=== PATIENT | male | born 1930 | race Caucasian/White ===

== ENCOUNTER 2020-05-23 09:48 | Emergency (ER) | payer OTHER ==
--- NOTE | 2020-05-23 09:53 | PDOC ---
Attending Attestation - Resident Resident Name: Pablo Key - ED Attending Attestation I have performed the following: I have examined & evaluated the patient, The case was reviewed & discussed with the resident, I agree w/resident's findings & plan, Exceptions are as noted - HPI HPI: 05/23/20 09:55 89y M htn, hl, hypothryoidism, dementia presents with complaint of urinary frequency for approx 2 weeks, was seen by PMD and dx with a UTI, started on cirpo that the pt completed and was started on keflex for the past 4 days as the pt was still symptomatic. No reported fever/chills, dysuria, foul smellin gurine, abd pain, cp, n/v, sob, back pain, changes in oral intake. No known hx of BPH. PMD: Dr. Petty - Physicial Exam PE: 05/23/20 11:16 GENERAL: The patient is awake, alert, and fully oriented, Nontoxic - in no acute distress. HEAD: Normocephalic, atraumatic. LUNGS: Breath sounds equal, clear to auscultation bilaterally. No wheezes, no rhonchi, no rales. HEART: Regular rate and rhythm, normal S1 and S2 without murmur, rub or gallop. ABDOMEN: Soft, fullness and mild tenderness on suprapbic region, No guarding, no rebound. No CVA tenderness SKIN: Warm, Dry, normal turgor, - Medical Decision Making 05/23/20 11:17 suspect urinary retention - possible due to UTI will ck labs, ua, ucx fontenot placed with approx 750cc of urine thus far will have pt continue / complet abx if labs unremarkable anticipate Urology fu 05/23/20 12:12 pts labs reviewed unremarkble pt feeling better will dc with outaptient fu with fontenot and leg bag return precautions were discussed Discharge - Discharge Information Problems reviewed: Yes Clinical Impression/Diagnosis: Urinary retention Condition: Stable Disposition: HOME - Admission No - Follow up/Referral Referrals: Charly Lopez MD [Staff Physician] - Juan F Bradford MD [Staff Physician] - Donovan San MD [Staff Physician] - Jeff Reid MD [Staff Physician] - Con Landeros MD [Primary Care Provider] - - Patient Discharge Instructions Patient Printed Discharge Instructions: How to Care for Your Fontenot Catheter -- Male, DI for Urinary Retention in Men Additional Instructions: You were seen in the Emergency Department for evaluation of urinary retention. A fontenot was placed and should stay in place until you are able to be seen by a urologist. Several referrals were given, call today/tomorrow to make an appointment. Review the handouts provided at discharge. Be sure to clean the fontenot everyday. Continue to take the Keflex that you were prescribed. Return to the Emergency Department if you develop fevers/chills, chest pain, trouble breathing, you notice that urine is not going into the bag, blood in yo ur urine, abdominal swelling (distention), worsening symptoms, or any new/concerning symptoms. - Post Discharge Activity
--- NOTE | 2020-05-23 09:54 | PDOC ---
History of Present Illness - General Chief Complaint: Urinary Problem Stated Complaint: URINARY PROBLEM Time Seen by Provider: 05/23/20 09:49 - History of Present Illness Initial Comments: The pt is an 89M w/ a history of HTN, HLD, hypothyroidism, and dementia who presents for evaluation of approximately 2 weeks of urinary frequency. The pt was seen by his PCP who performed a UA/UCx and pt was found to have a UTI. The pt has completed 10 days of Ciprofloxacin with initial resolution of symptoms but they recurred this past Saturday. The pt was then started on Keflex which he is still taking. The pt reports frequency but denies fevers/chills, dysuria, hematuria, N/V, abd pain, or blood in his stool. The pt has not had this happen before. Denies any previous prostate surgery or known history of BPH. 05/23/20 10:00 Past History - Medical History Allergies/Adverse Reactions: Allergies Allergy/AdvReac Type Severity Reaction Status Date / Time No Known Drug Allergies Allergy Verified 05/23/20 09:55 Home Medications: Ambulatory Orders Apraclonidin 1 drop OP ASDIR 05/23/20 Atropine 1% Ophth. Solution - [(None)] 1 drop OP ASDIR 05/23/20 Cyanocobalamin (Vitamin B-12) [Vitamin B12] 2,500 mcg PO DAILY 05/23/20 Cycloprentolate 1% 1 drop OP DAILY 05/23/20 Donepezil HCl 5 mg PO DAILY 05/23/20 Levothyroxine [Synthroid -] 50 mcg PO DAILY 05/23/20 Lisinopril 5 mg PO BID 05/23/20 Melatonin 6 mg PO HS 05/23/20 Memantine HCl [Namenda -] 5 mg PO BID 05/23/20 Simvastatin 20 mg PO DAILY 05/23/20 Timolol 0.5% [Timoptic 0.5%] 1 drop OD ASDIR PRN 05/23/20 Hypercholesterolemia: Yes - Psycho-Social/Smoking History Smoking History: Never smoked Have you smoked in the past 12 months: No Review of Systems - Review of Systems Able to Perform ROS?: Yes Comments:: GENERAL/CONSTITUTIONAL: No fever or chills. No weakness HEAD, EYES, EARS, NOSE AND THROAT: No change in vision. No change in hearing. No sore throat CARDIOVASCULAR: No chest pain or shortness of breath RESPIRATORY: Denies cough, hemoptysis GASTROINTESTINAL: No nausea, vomiting, diarrhea or constipation GENITOURINARY: +Frequency; Denies dysuria/hematuria MUSCULOSKELETAL: No joint or muscle swelling or pain. No neck or back pain SKIN: No rash NEUROLOGIC: No headache, vertigo, loss of consciousness, or change in strength/sensation ENDOCRINE: No increased thirst. No abnormal weight change HEMATOLOGIC/LYMPHATIC: No anemia, easy bleeding, or history of blood clots ALLERGIC/IMMUNOLOGIC: No hives or skin allergy 05/23/20 10:02 Is the patient limited [place]an proficient: No *Physical Exam - Vital Signs Initial Vital Signs Temp Pulse Resp BP Pulse Ox 98 F 59 L 18 148/87 96 05/23/20 09:48 05/23/20 09:48 05/23/20 09:48 05/23/20 09:48 05/23/20 09:48 05/23/20 10:03 - Physical Exam GENERAL: Awake, alert, and oriented to person/place/time, in no acute distress HEAD: No signs of trauma, normocephalic, atraumatic EYES: EOMI, sclera anicteric, conjunctiva clear ENT: Hearing grossly normal, nares patent, oropharynx clear without exudates. Moist mucosa LUNGS: No distress, speaks in full sentences, clear to auscultation bilaterally HEART: Regular rate and rhythm, normal S1 and S2, no murmurs appreciated, perip heral pulses normal and equal bilaterally ABDOMEN: Suprapubic distention noted, remainder of abd soft, nontender, normoactive bowel sounds. No guarding, no rebound EXTREMITIES: Normal inspection, Normal range of motion, no edema. No clubbing or cyanosis NEUROLOGICAL: Cranial nerves II through XII grossly intact. Normal speech, no focal sensorimotor deficits SKIN: Warm, Dry 05/23/20 10:03 ED Treatment Course - LABORATORY CBC & Chemistry Diagram: 05/23/20 10:15 05/23/20 10:33 Medical Decision Making - Medical Decision Making The pt is an 89M w/ a history of HTN, HLD, hypothyroidism, and dementia who presents for evaluation of approximately 2 weeks of urinary frequency w/ a palpable distended bladder Ddx: UTI, Urinary retention 2/2 BPH vs infection ED Course CMP, CBC, UA, UCx Fontenot for retention Pt currently on Keflex based on cultures obtained by pt's PCP. Plan for pt to continue said abx pending cultures obtained today 05/23/20 10:04 Fontenot placed with initial 750cc Uop No leukocytosis No anemia UA w/ neg LE and nitrites CMP pending Will leave fontenot in place for urinary retention 05/23/20 10:59 Lytes unremarkable Cr wnl LFTs unremarkable Plan for D/C w/ leg bag and Urology f/u Discharge instructions and return precautions given Patient in agreement and verbalized understanding Dispo: Home 05/23/20 11:31 Discharge - Discharge Information Problems reviewed: Yes Clinical Impression/Diagnosis: Urinary retention Condition: Stable - Admission No - Follow up/Referral Referrals: Con Landeros MD [Primary Care Provider] - Juan F Bradford MD [Staff Physician] - Charly Lopez MD [Staff Physician] - Donovan San MD [Staff Physician] - Jeff Reid MD [Staff Physician] - - Patient Discharge Instructions Patient Printed Discharge Instructions: How to Care for Your Fontenot Catheter -- Male, DI for Urinary Retention in Men Additional Instructions: You were seen in the Emergency Department for evaluation of urinary retention. A fontenot was placed and should stay in place until you are able to be seen by a urologist. Several referrals were given, call today/tomorrow to make an appoi ntment. Review the handouts provided at discharge. Be sure to clean the fontenot everyday. Continue to take the Keflex that you were prescribed. Return to the Emergency Department if you develop fevers/chills, chest pain, trouble breathing, you notice that urine is not going into the bag, blood in your urine, abdominal swelling (distention), worsening symptoms, or any new/concerning symptoms. - Post Discharge Activity
[2020-05-23 09:58] VITALS: BP 148/87; PULSE 59; TEMP 98; BMI 20.6
[2020-05-23 10:28] LABS: BASO % 3.6 % (0-2.0); HEMATOCRIT 38.8 % (35.4-49); HEMOGLOBIN 12.5 GM/dl (11.7-16.9); LYMPH % 15.4 % (8-40); MCH 30.6 pg (25.7-33.7); MCHC 32.3 g/dl (32.0-35.9); MEAN CELL VOLUME 94.9 fl (80-96); MEAN PLT VOLUME 8.6 fl (7.5-11.1); MONO % 7.8 % (3.8-10.2); NEUT % 68.2 % (42.8-82.8); PLATELET COUNT 229 K/MM3 (134-434); RBC 4.09 M/mm3 (4.00-5.60); RDW 14.9 % (11.9-15.9); WHITE BLOOD COUNT 6.9 K/mm3 (4.0-10.8)
[2020-05-23 11:26] LABS: ALBUMIN 3.6 g/dl (3.4-5.0); BILIRUBIN,TOTAL 0.2 mg/dl (0.2-1); CALCIUM 8.9 mg/dl (8.5-10); POTASSIUM 4.5 mmol/L (3.5-5.1); TOT PROT 7.3 g/dl (6.4-8.2)
[2020-05-23] MEDS ORDERED: ACETAMINOPHEN 500 MG TABLET (FP) PO ONE (11:37)
[2020-05-23] MEDS ORDERED: ACETAMINOPHEN 500 MG TABLET (FP) ONE (11:39)
[2020-05-23 11:43] LABS: EPITHELIAL CELLS RARE /hpf
== END 2020-05-23 12:00 | disposition home or self-care (01) ==
LOC: FER 09:48
DX: R33.9 Retention of urine, unspecified (principal)
CPT/HCPCS: 36415; 80053; 81003; 81015; 85025; 87086; 99283-25